=== PATIENT | male | born 1965 | race Caucasian/White ===

== ENCOUNTER 2020-04-04 16:46 | Emergency (ER) | payer OTHER ==
[~2020-04-04] VITALS: Ht 182.9 cm; Wt 136.1 kg
[2020-04-04] MEDS ORDERED: HYDROmorphone HCL 2 MG/ML VL IV ONE (19:45)
[2020-04-04] MEDS ORDERED: ONDANSETRON HCL 4 MG/2 ML VIAL IV ONE (19:45)
[2020-04-04] MEDS ORDERED: KETOROLAC TROMETH 30 MG/ML 1ML VIAL IV ONE (19:45)
[2020-04-04] MEDS ORDERED: DexAMETHasone INJECTION 10 MG in D5W 5% 50 ML IV ONE (19:45)
[2020-04-04 21:50] VITALS: BP 153/99
[2020-04-05] MEDS ORDERED: DexAMETHasone INJECTION 10 MG in D5W 5% 50 ML IV SCH (10:00)
== END 2020-04-04 22:30 | disposition home or self-care (01) ==
LOC: EDBD 16:46 → ER 16:46
DX: M54.16 Radiculopathy, lumbar region (principal)
CPT/HCPCS: 72131; 96365; 96375; 99284; J1100; J1170; J1885; J2405; J7060